=== PATIENT | male | born 1985 | race Caucasian/White ===

== ENCOUNTER 2022-11-09 00:44 | Inpatient (IN) | payer MEDICAID ==
[~2022-11-09] VITALS: Ht 165.1 cm; Wt 86.5 kg
[2022-11-09 02:36] LABS: COVID AG,FIA SOURCE NASAL SWAB
[2022-11-09 02:43] LABS: PH,URINE DRUG SCREEN 6.5 (5.0-8.0)
[2022-11-09 02:50] LABS: ALCOHOL, URINE DRUG SCREEN NEGATIVE (NEGATIVE); AMPHET/METH SCREEN,URINE NEGATIVE (NEGATIVE); BARBITURATE SCREEN, URINE NEGATIVE (NEGATIVE); BENZODIAZEPINES SCREEN,URINE NEGATIVE (NEGATIVE); CANNABINOID SCREEN,URINE NEGATIVE (NEGATIVE); COCAINE SCREEN,URINE NEGATIVE (NEGATIVE); METHADONE SCREEN, URINE NEGATIVE (NEGATIVE); OPIATE SCREEN,URINE NEGATIVE (NEGATIVE); PHENCYCLIDINE SCREEN,URINE NEGATIVE (NEGATIVE)
[2022-11-09 03:01] LABS: SARS-COV2 (COVID) ANTIGEN,FIA Negative (Negative)
[2022-11-09] MEDS ORDERED: DIVALPROEX SODIUM 500 MG ER TABLET PO ONE ×2 (08:30→16:00)
[2022-11-09 08:55] LABS: BASOPHILS % (AUTO) 1.3 % (0.0-2.0); EOSINOPHILS % (AUTO) 11.6 % (1.0-6.0); HEMATOCRIT 47.2 % (41-53); HEMOGLOBIN 15.5 g/dL (13.5-17.5); LYMPHOCYTES # (AUTO) 3.3 K/uL (1.0-4.8); LYMPHOCYTES % (AUTO) 29.3 % (22.0-44.0); MEAN CORPUSCULAR HEMOGLOBIN 30.1 pg (26.0-34.0); MEAN CORPUSCULAR HGB CONC 32.9 G/dL (31.0-37.0); MEAN CORPUSCULAR VOLUME 92 fL (80-100); MONOCYTES # (AUTO) 1.2 K/uL (0.1-1.0); NEUTROPHILS # (AUTO) 5.2 K/uL (1.8-7.7); NEUTROPHILS % (AUTO) 46.8 % (40.0-70.0); PLATELET COUNT (AUTO) 282 K/uL (150-450); RED BLOOD CELL COUNT(AUTO) 5.16 MIL/uL (4.50-5.90); RED CELL DISTRIBUTION WIDTH 13.5 % (11.5-14.5); WHITE BLOOD COUNT (AUTO) 11.1 K/uL (4.5-11.0)
[2022-11-09 09:04] LABS: ANION GAP 7 mmol/L (8-16); CALCIUM, TOTAL 9.1 mg/dL (8.8-10.5); CARBON DIOXIDE 32 mmol/L (22-29); CHLORIDE 103 mmol/L (98-107); CREATININE 0.91 mg/dL (0.60-1.30); GLOMERULAR FILTR. RATE CALC > 60 mL/min (>60); GLUCOSE,RANDOM 127 mg/dL (70-110); POTASSIUM 4.4 mmol/L (3.5-5.1); SODIUM SERUM 142 mmol/L (136-145); UREA NITROGEN, BLOOD 14 mg/dL (7-18)
[2022-11-09 09:10] LABS: ALANINE AMINOTRANSFERASE 52 U/L (12-78); ALBUMIN 3.9 g/dL (3.4-5.0); ALKALINE PHOSPHATASE 80 U/L (46-116); ASPARTATE AMINOTRANSFERASE 22 U/L (15-37); BILIRUBIN,TOTAL 0.3 mg/dL (0.1-1.0); TOTAL PROTEIN, SERUM 7.7 g/dL (6.4-8.2)
[2022-11-09 09:44] LABS: ALCOHOL, BLOOD (SERUM) < 3 mg/dL (0-10)
[2022-11-09] MEDS ORDERED: MAGNESIUM HYDROXIDE SUSPENSION 30 ML UDCUP PO PRN (10:45)
[2022-11-09] MEDS ORDERED: LOPERAMIDE HCL 2 MG CAPSULE PO PRN (10:45)
[2022-11-09] MEDS ORDERED: GuaiFENesin/D-METHORPHAN [SUGAR-FREE] 200-20MG/10 ML SYRUP UDCUP PO PRN (10:45)
[2022-11-09] MEDS ORDERED: MAG HYDROX/AL HYDROX/SIMETH ES 30 ML SUSPENSION UDCUP PO PRN (10:45)
[2022-11-09] MEDS ORDERED: PROMETHAZINE HCL 25 MG TABLET PO PRN (10:45)
[2022-11-09] MEDS ORDERED: ACETAMINOPHEN 325 MG TABLET PO PRN (10:45)
[2022-11-09] MEDS ORDERED: TUBERCULIN, PURIFIED PROTEIN DERIVATIVE 5 TU/0.1 ML SYRINGE ID ONE (10:45)
[2022-11-09] MEDS ORDERED: OLANZapine 5 MG RAPDIS TABLET PO PRN (10:45)
[2022-11-09] MEDS ORDERED: LORazepam 2 MG TABLET PO PRN (10:45)
[2022-11-09] MEDS: THIAMINE 100 MG TABLET PO SCH (21:40)
[2022-11-09] MEDS: TraZODone HCL 50 MG TABLET PO SCH (21:42)
[2022-11-09] MEDS: DIVALPROEX SODIUM 500 MG ER TABLET PO SCH (21:42)
[2022-11-09] MEDS: MELATONIN 5 MG TABLET PO SCH (21:43)
[2022-11-09] MEDS: LURASIDONE HCL 40 MG TABLET PO SCH (21:43)
[2022-11-10] MEDS: FOLIC ACID 1 MG TABLET PO SCH (08:08)
[2022-11-10] MEDS: THIAMINE 100 MG TABLET PO SCH ×2 (08:08→21:14)
[2022-11-10] MEDS: MULTIVITAMINS WITH MINERALS, THERAPEUTIC TABLET PO SCH (08:08)
[2022-11-10 08:24] LABS: HEMOGLOBIN A1C 6.4 % (3.8-5.6)
[2022-11-10 08:42] LABS: CHOL/HDL RATIO 5.3 (4.2-7.3); FREE T4 (FREE THYROXINE) 0.95 ng/dL (0.76-1.46); THYROID STIMULATING HORMONE 2.04 uIU/mL (0.36-3.74)
[2022-11-10] MEDS: OMEGA-3/DHA/EPA/FISH OIL 1,000 MG CAPSULE PO SCH (09:00)
[2022-11-10] MEDS: LURASIDONE HCL 40 MG TABLET PO SCH (17:26)
[2022-11-10] MEDS: TraZODone HCL 50 MG TABLET PO SCH (21:14)
[2022-11-10] MEDS: MELATONIN 5 MG TABLET PO SCH (21:14)
[2022-11-10] MEDS: DIVALPROEX SODIUM 500 MG ER TABLET PO SCH (21:14)
[2022-11-10] MEDS ORDERED: INSULIN LISPRO 100 UNITS/ML SQ PRN (23:30)
[2022-11-10] MEDS ORDERED: GLUCAGON,HUMAN RECOMBINANT 1 MG VIAL IM PRN (23:30)
[2022-11-11 00:31] VITALS: BP 123/77; PULSE 68; RESP 18; TEMP 98; O2SAT 96
[2022-11-11 00:35] VITALS: BP 123/77; PULSE 68; RESP 18; TEMP 98
[2022-11-11] MEDS: ZOLPIDEM TARTRATE 10 MG TABLET PO PRN (01:00)
[2022-11-11] MEDS: MULTIVITAMINS WITH MINERALS, THERAPEUTIC TABLET PO SCH (08:47)
[2022-11-11] MEDS: THIAMINE 100 MG TABLET PO SCH ×2 (08:47→17:17)
[2022-11-11] MEDS: FOLIC ACID 1 MG TABLET PO SCH (08:47)
[2022-11-11] MEDS: OMEGA-3/DHA/EPA/FISH OIL 1,000 MG CAPSULE PO SCH (08:53)
[2022-11-11] MEDS ORDERED: PALIPERIDONE PALMITATE 234 MG/1.5 ML SYRINGE IM ONE (09:00)
[2022-11-11 09:30] VITALS: BP 156/86; PULSE 65; RESP 18; TEMP 97.8
[2022-11-11] MEDS: MetFORMIN HCL 500 MG TABLET PO SCH (11:48)
[2022-11-11] MEDS ORDERED: LURASIDONE HCL 60 MG TABLET PO SCH (17:30)
[2022-11-11] MEDS: MELATONIN 5 MG TABLET PO SCH (20:35)
[2022-11-11] MEDS: TraZODone HCL 50 MG TABLET PO SCH (20:35)
[2022-11-11] MEDS: DIVALPROEX SODIUM 500 MG ER TABLET PO SCH (20:35)
[2022-11-11] MEDS: ATORVASTATIN CALCIUM 10 MG TABLET PO SCH (20:35)
[2022-11-11] MEDS: HydrOXYzine PAMOATE 50 MG CAPSULE PO PRN (21:26)
[2022-11-11 21:29] VITALS: RESP 18
[2022-11-12 08:30] VITALS: RESP 18
[2022-11-12] MEDS: MULTIVITAMINS WITH MINERALS, THERAPEUTIC TABLET PO SCH (08:45)
[2022-11-12] MEDS: THIAMINE 100 MG TABLET PO SCH ×2 (08:45→18:38)
[2022-11-12] MEDS: FOLIC ACID 1 MG TABLET PO SCH (08:45)
[2022-11-12] MEDS: MetFORMIN HCL 500 MG TABLET PO SCH (08:46)
[2022-11-12] MEDS: OMEGA-3/DHA/EPA/FISH OIL 1,000 MG CAPSULE PO SCH (08:53)
[2022-11-12 17:01] LABS: GLUCOMETER DEV NAME(LOC) 3E.C; GLUCOSE,POINT OF CARE 174 MG/DL (70-110)
[2022-11-12] MEDS: LURASIDONE HCL 80 MG TABLET PO SCH (18:38)
[2022-11-12] MEDS: HydrOXYzine PAMOATE 50 MG CAPSULE PO PRN (20:48)
[2022-11-12] MEDS: ATORVASTATIN CALCIUM 10 MG TABLET PO SCH (20:48)
[2022-11-12] MEDS: TraZODone HCL 50 MG TABLET PO SCH (20:48)
[2022-11-12] MEDS: MELATONIN 5 MG TABLET PO SCH (20:48)
[2022-11-12] MEDS: DIVALPROEX SODIUM 500 MG ER TABLET PO SCH (20:48)
[2022-11-12 23:57] VITALS: RESP 18
[2022-11-13 06:11] LABS: GLUCOMETER DEV NAME(LOC) 3E.C; GLUCOSE,POINT OF CARE 135 MG/DL (70-110)
[2022-11-13] MEDS: MetFORMIN HCL 500 MG TABLET PO SCH (06:32)
[2022-11-13 08:48] VITALS: RESP 18
[2022-11-13] MEDS: OMEGA-3/DHA/EPA/FISH OIL 1,000 MG CAPSULE PO SCH (09:00)
[2022-11-13] MEDS: MULTIVITAMINS WITH MINERALS, THERAPEUTIC TABLET PO SCH (11:00)
[2022-11-13] MEDS: THIAMINE 100 MG TABLET PO SCH ×2 (11:00→17:30)
[2022-11-13] MEDS: FOLIC ACID 1 MG TABLET PO SCH (11:00)
[2022-11-13] MEDS ORDERED: DEXTROSE 50%-WATER 25 GM/50 ML SYRINGE IVP PRN (11:15)
[2022-11-13 16:56] LABS: GLUCOMETER DEV NAME(LOC) 3E.C; GLUCOSE,POINT OF CARE 240 MG/DL (70-110)
[2022-11-13] MEDS: LURASIDONE HCL 80 MG TABLET PO SCH (17:33)
[2022-11-13] MEDS: INSULIN LISPRO 100 UNITS/ML SQ PRN (18:36)
[2022-11-13 20:16] VITALS: RESP 18
[2022-11-13] MEDS: MELATONIN 5 MG TABLET PO SCH (21:20)
[2022-11-13] MEDS: TraZODone HCL 50 MG TABLET PO SCH (21:20)
[2022-11-13] MEDS: DIVALPROEX SODIUM 500 MG ER TABLET PO SCH (21:20)
[2022-11-13] MEDS: ATORVASTATIN CALCIUM 10 MG TABLET PO SCH (21:20)
[2022-11-14 05:36] LABS: GLUCOMETER DEV NAME(LOC) 3E.C; GLUCOSE,POINT OF CARE 133 MG/DL (70-110)
[2022-11-14] MEDS: MetFORMIN HCL 500 MG TABLET PO SCH (07:03)
[2022-11-14] MEDS: INSULIN LISPRO 100 UNITS/ML SQ PRN ×3 (07:10→17:43)
[2022-11-14] MEDS: MULTIVITAMINS WITH MINERALS, THERAPEUTIC TABLET PO SCH (08:57)
[2022-11-14] MEDS: OMEGA-3/DHA/EPA/FISH OIL 1,000 MG CAPSULE PO SCH ×2 (08:57→09:00)
[2022-11-14] MEDS: THIAMINE 100 MG TABLET PO SCH ×2 (08:57→17:22)
[2022-11-14] MEDS: FOLIC ACID 1 MG TABLET PO SCH (08:57)
[2022-11-14 11:19] VITALS: RESP 18
[2022-11-14 16:26] LABS: GLUCOMETER DEV NAME(LOC) 3E.C; GLUCOSE,POINT OF CARE 185 MG/DL (70-110)
[2022-11-14] MEDS: LURASIDONE HCL 80 MG TABLET PO SCH (17:22)
[2022-11-14] MEDS: DIVALPROEX SODIUM 500 MG ER TABLET PO SCH (20:15)
[2022-11-14] MEDS: TraZODone HCL 50 MG TABLET PO SCH (20:15)
[2022-11-14] MEDS: ATORVASTATIN CALCIUM 10 MG TABLET PO SCH (20:15)
[2022-11-14] MEDS: MELATONIN 5 MG TABLET PO SCH (20:15)
[2022-11-14] MEDS: ZOLPIDEM TARTRATE 10 MG TABLET PO PRN (21:20)
[2022-11-14 22:07] VITALS: RESP 18
[2022-11-15] MEDS: MetFORMIN HCL 500 MG TABLET PO SCH (06:44)
[2022-11-15 08:00] VITALS: RESP 17; TEMP 98
[2022-11-15] MEDS: OMEGA-3/DHA/EPA/FISH OIL 1,000 MG CAPSULE PO SCH (09:00)
[2022-11-15] MEDS ORDERED: PALIPERIDONE PALMITATE 156 MG/ML SYRINGE IM ONE (09:00)
[2022-11-15] MEDS: MULTIVITAMINS WITH MINERALS, THERAPEUTIC TABLET PO SCH (09:42)
[2022-11-15] MEDS: THIAMINE 100 MG TABLET PO SCH ×2 (09:42→18:16)
[2022-11-15] MEDS: FOLIC ACID 1 MG TABLET PO SCH (09:42)
[2022-11-15 17:32] LABS: GLUCOMETER DEV NAME(LOC) 3E.C; GLUCOSE,POINT OF CARE 190 MG/DL (70-110)
[2022-11-15] MEDS: LURASIDONE HCL 80 MG TABLET PO SCH (18:16)
[2022-11-15] MEDS: TraZODone HCL 50 MG TABLET PO SCH (20:58)
[2022-11-15] MEDS: ATORVASTATIN CALCIUM 10 MG TABLET PO SCH (20:58)
[2022-11-15] MEDS: DIVALPROEX SODIUM 500 MG ER TABLET PO SCH (20:58)
[2022-11-15] MEDS: MELATONIN 5 MG TABLET PO SCH (20:58)
[2022-11-15 22:08] VITALS: BP 132/82; PULSE 83; RESP 19; TEMP 98.1
[2022-11-16] MEDS: MetFORMIN HCL 500 MG TABLET PO SCH (06:32)
[2022-11-16] MEDS: INSULIN LISPRO 100 UNITS/ML SQ PRN (06:41)
[2022-11-16 07:27] LABS: GLUCOMETER DEV NAME(LOC) 3E.C; GLUCOSE,POINT OF CARE 128 MG/DL (70-110)
[2022-11-16] MEDS: OMEGA-3/DHA/EPA/FISH OIL 1,000 MG CAPSULE PO SCH (09:00)
[2022-11-16] MEDS: FOLIC ACID 1 MG TABLET PO SCH (12:21)
[2022-11-16] MEDS: MULTIVITAMINS WITH MINERALS, THERAPEUTIC TABLET PO SCH (12:21)
[2022-11-16] MEDS: THIAMINE 100 MG TABLET PO SCH ×2 (12:21→18:16)
[2022-11-16] MEDS ORDERED: GABAPENTIN 300 MG CAPSULE PO PRN (14:15)
[2022-11-16 16:16] LABS: GLUCOMETER DEV NAME(LOC) 3E.C; GLUCOSE,POINT OF CARE 210 MG/DL (70-110)
[2022-11-16] MEDS: LURASIDONE HCL 60 MG TABLET PO SCH (18:39)
[2022-11-16] MEDS: ATORVASTATIN CALCIUM 10 MG TABLET PO SCH (21:05)
[2022-11-16] MEDS: MELATONIN 5 MG TABLET PO SCH (21:05)
[2022-11-16] MEDS: ESZOPICLONE 3 MG TABLET PO SCH (21:05)
[2022-11-16] MEDS: DIVALPROEX SODIUM 500 MG ER TABLET PO SCH (21:05)
[2022-11-16] MEDS: TraZODone HCL 50 MG TABLET PO SCH (21:05)
[2022-11-16 21:19] VITALS: BP 137/75; PULSE 89; RESP 18; TEMP 98.2
[2022-11-17 06:26] LABS: GLUCOMETER DEV NAME(LOC) 3E.C; GLUCOSE,POINT OF CARE 151 MG/DL (70-110)
[2022-11-17] MEDS: INSULIN LISPRO 100 UNITS/ML SQ PRN ×2 (06:48→17:15)
[2022-11-17] MEDS: MetFORMIN HCL 500 MG TABLET PO SCH (06:57)
[2022-11-17] MEDS: OMEGA-3/DHA/EPA/FISH OIL 1,000 MG CAPSULE PO SCH (09:00)
[2022-11-17 09:23] VITALS: BP 143/80; PULSE 85; RESP 17; TEMP 97.8
[2022-11-17] MEDS: THIAMINE 100 MG TABLET PO SCH ×2 (09:44→17:14)
[2022-11-17] MEDS: MULTIVITAMINS WITH MINERALS, THERAPEUTIC TABLET PO SCH (09:44)
[2022-11-17] MEDS: FOLIC ACID 1 MG TABLET PO SCH (09:44)
[2022-11-17] MEDS: LURASIDONE HCL 60 MG TABLET PO SCH (17:14)
[2022-11-17 17:26] LABS: GLUCOMETER DEV NAME(LOC) 3E.C; GLUCOSE,POINT OF CARE 130 MG/DL (70-110)
[2022-11-17 20:55] VITALS: BP 143/89; PULSE 78; RESP 18; TEMP 98.1
[2022-11-17] MEDS: DIVALPROEX SODIUM 500 MG ER TABLET PO SCH (21:05)
[2022-11-17] MEDS: ATORVASTATIN CALCIUM 10 MG TABLET PO SCH (21:06)
[2022-11-17] MEDS: MELATONIN 5 MG TABLET PO SCH (21:06)
[2022-11-17] MEDS: ESZOPICLONE 3 MG TABLET PO SCH (21:06)
[2022-11-17] MEDS: TraZODone HCL 50 MG TABLET PO SCH (21:06)
[2022-11-18 06:26] LABS: GLUCOMETER DEV NAME(LOC) 3E.C; GLUCOSE,POINT OF CARE 120 MG/DL (70-110)
[2022-11-18] MEDS: INSULIN LISPRO 100 UNITS/ML SQ PRN (06:43)
[2022-11-18] MEDS: MetFORMIN HCL 500 MG TABLET PO SCH (07:16)
[2022-11-18] MEDS: FOLIC ACID 1 MG TABLET PO SCH (08:29)
[2022-11-18] MEDS: MULTIVITAMINS WITH MINERALS, THERAPEUTIC TABLET PO SCH (08:29)
[2022-11-18] MEDS: THIAMINE 100 MG TABLET PO SCH ×2 (08:29→16:55)
[2022-11-18] MEDS: OMEGA-3/DHA/EPA/FISH OIL 1,000 MG CAPSULE PO SCH ×2 (08:29→09:00)
[2022-11-18 10:11] VITALS: BP 123/76; PULSE 80; RESP 19; TEMP 97.6
[2022-11-18] MEDS: LURASIDONE HCL 60 MG TABLET PO SCH (16:55)
[2022-11-18 17:01] LABS: GLUCOMETER DEV NAME(LOC) 3E.C; GLUCOSE,POINT OF CARE 232 MG/DL (70-110)
[2022-11-18] MEDS: DIVALPROEX SODIUM 500 MG ER TABLET PO SCH (21:02)
[2022-11-18] MEDS: ATORVASTATIN CALCIUM 10 MG TABLET PO SCH (21:02)
[2022-11-18] MEDS: MELATONIN 5 MG TABLET PO SCH (21:02)
[2022-11-18] MEDS: TraZODone HCL 50 MG TABLET PO SCH (21:02)
[2022-11-18] MEDS: ESZOPICLONE 3 MG TABLET PO SCH (21:02)
[2022-11-18 21:51] VITALS: BP 136/85; PULSE 84; RESP 18; TEMP 99.2
[2022-11-19 06:02] LABS: GLUCOMETER DEV NAME(LOC) 3E.C; GLUCOSE,POINT OF CARE 140 MG/DL (70-110)
[2022-11-19] MEDS: MetFORMIN HCL 500 MG TABLET PO SCH (06:52)
[2022-11-19] MEDS: INSULIN LISPRO 100 UNITS/ML SQ PRN ×2 (06:52→17:20)
[2022-11-19] MEDS: FOLIC ACID 1 MG TABLET PO SCH (08:26)
[2022-11-19] MEDS: MULTIVITAMINS WITH MINERALS, THERAPEUTIC TABLET PO SCH (08:26)
[2022-11-19] MEDS: OMEGA-3/DHA/EPA/FISH OIL 1,000 MG CAPSULE PO SCH ×2 (08:26→09:00)
[2022-11-19 09:00] VITALS: TEMP 97.3
[2022-11-19] MEDS: LURASIDONE HCL 60 MG TABLET PO SCH (16:11)
[2022-11-19 17:01] LABS: GLUCOMETER DEV NAME(LOC) 3E.C; GLUCOSE,POINT OF CARE 187 MG/DL (70-110)
[2022-11-19] MEDS ORDERED: DIVA500T69 PO (20:23)
[2022-11-19] MEDS ORDERED: NALT50TA PO (20:23)
[2022-11-19] MEDS ORDERED: MELA5TAB40 PO (20:23)
[2022-11-19] MEDS ORDERED: TRAZ-252 PO (20:23)
[2022-11-19] MEDS ORDERED: LURA60TA4 PO (20:23)
[2022-11-19] MEDS: ESZOPICLONE 3 MG TABLET PO SCH (20:52)
[2022-11-19] MEDS: DIVALPROEX SODIUM 500 MG ER TABLET PO SCH (20:52)
[2022-11-19] MEDS: ATORVASTATIN CALCIUM 10 MG TABLET PO SCH (20:52)
[2022-11-19] MEDS: MELATONIN 5 MG TABLET PO SCH (20:52)
[2022-11-19] MEDS: TraZODone HCL 50 MG TABLET PO SCH (20:53)
[2022-11-19 22:01] VITALS: BP 111/80; PULSE 85; RESP 18; TEMP 97.3
[2022-11-20 06:06] LABS: GLUCOMETER DEV NAME(LOC) 3E.C; GLUCOSE,POINT OF CARE 124 MG/DL (70-110)
[2022-11-20] MEDS: INSULIN LISPRO 100 UNITS/ML SQ PRN (06:48)
[2022-11-20] MEDS: MetFORMIN HCL 500 MG TABLET PO SCH (06:48)
[2022-11-20] MEDS: MULTIVITAMINS WITH MINERALS, THERAPEUTIC TABLET PO SCH (09:35)
[2022-11-20] MEDS ORDERED: ATOR10TA69 PO (10:46)
[2022-11-20] MEDS ORDERED: METF-1211 PO (10:46)
[2022-11-20 11:48] VITALS: BP 147/70; PULSE 80; RESP 18; TEMP 97
== END 2022-11-20 12:25 | disposition home or self-care (01) | DRG 750 ==
LOC: EMS 00:45 → 3EI 11-11 00:01
PROVIDERS: ADMIT Psychiatry & Neurology Psychiatry; ATTEND Psychiatry & Neurology Psychiatry
DX: F25.0 Schizoaffective disorder, bipolar type (principal); R45.851 Suicidal ideations; G40.802 Other epilepsy, not intractable, without status epilepticus; D72.829 Elevated white blood cell count, unspecified; F11.20 Opioid dependence, uncomplicated; F90.9 Attention-deficit hyperactivity disorder, unspecified type; Z20.822 Contact with and (suspected) exposure to COVID-19; J44.9 Chronic obstructive pulmonary disease, unspecified; E78.5 Hyperlipidemia, unspecified; Z55.9 Problems related to education and literacy, unspecified; Z59.00 Homelessness unspecified; Z63.9 Problem related to primary support group, unspecified; Z65.3 Problems related to other legal circumstances; Z91.018 Allergy to other foods; Z91.048 Other nonmedicinal substance allergy status
CPT/HCPCS: 80053; 80061; 80164; 80307; 82962; 83036; 84439; 84443; 85025; 86592; 99285; G0480; Q9967